=== PATIENT | male | born 1985 | race Caucasian/White ===

== ENCOUNTER 2025-01-20 15:58 | Inpatient (IN) | payer OTHER ==
[~2025-01-20] VITALS: Ht 177.8 cm; Wt 89.5 kg
[2025-01-20] MEDS ORDERED: ZOLPIDEM TARTRATE 5 MG TABLET PO PRN (17:30)
[2025-01-20] MEDS ORDERED: MAGNESIUM HYDROXIDE SUSPENSION 30 ML UDCUP PO PRN (17:30)
[2025-01-20] MEDS: DOCUSATE SODIUM 100 MG CAPSULE PO SCH (20:48)
[2025-01-21 02:01] VITALS: BP 140/99; PULSE 60; RESP 20; TEMP 98.4; O2SAT 96
[2025-01-21] MEDS: FAMOTIDINE 20 MG TABLET PO SCH (08:51)
[2025-01-21 16:52] VITALS: BP 155/98; PULSE 58; RESP 20; TEMP 97.8; O2SAT 95
[2025-01-21 19:56] VITALS: BP 132/104; PULSE 73; RESP 18; TEMP 97.7; O2SAT 73; O2SAT 93
[2025-01-21 23:07] LABS: APPEARANCE,URINE CLEAR (CLEAR); GLUCOSE, URINE (UA) TRACE mg/dL (NEGATIVE); LEUKOCYTE ESTERASE ,URINE NEGATIVE (NEGATIVE); NITRATE,URINE NEGATIVE (NEGATIVE); OCCULT BLOOD,URINE NEGATIVE (NEGATIVE); SPECIFIC GRAVITIY, URINE 1.033 (1.003-1.030)
[2025-01-21 23:08] LABS: PH,URINE DRUG SCREEN 6.5 (5.0-8.0)
[2025-01-21 23:13] LABS: ALCOHOL, URINE DRUG SCREEN NEGATIVE (NEGATIVE); AMPHET/METH SCREEN,URINE NEGATIVE (NEGATIVE); BARBITURATE SCREEN, URINE NEGATIVE (NEGATIVE); CANNABINOID SCREEN,URINE NEGATIVE (NEGATIVE); COCAINE SCREEN,URINE NEGATIVE (NEGATIVE); METHADONE SCREEN, URINE NEGATIVE (NEGATIVE)
[2025-01-22 05:34] VITALS: BP 155/109; PULSE 73; RESP 19; TEMP 97.4; O2SAT 98
[2025-01-22 09:05] VITALS: BP 137/100; PULSE 57; RESP 20; TEMP 98.1; O2SAT 98
[2025-01-22] MEDS: DEXTROSE 5%-0.45% SODIUM CHL 1,000 ML IV SCH (12:45)
[2025-01-22] MEDS: HEPARIN SODIUM,PORCINE 5,000 UNITS/ML VIAL SQ SCH (16:00)
[2025-01-22 19:40] VITALS: BP 133/92; PULSE 57; RESP 18; TEMP 98.1; O2SAT 98
[2025-01-23 05:20] VITALS: BP 129/85; PULSE 59; RESP 18; TEMP 97.9; O2SAT 100
[2025-01-23 08:08] VITALS: BP 118/84; PULSE 62; RESP 18; TEMP 97.9; O2SAT 100
[2025-01-23 15:35] VITALS: BP 131/92; PULSE 65; RESP 18; TEMP 97.8; O2SAT 100
[2025-01-23 19:12] VITALS: BP 122/96; PULSE 70; RESP 18; TEMP 98.1; O2SAT 97
[2025-01-24 04:50] VITALS: BP 133/79; PULSE 71; RESP 19; TEMP 97.9; O2SAT 100
[2025-01-24 07:30] VITALS: BP 126/90; PULSE 82; RESP 19; TEMP 97.9; O2SAT 100
[2025-01-24 21:01] VITALS: BP 125/82; PULSE 91; RESP 18; TEMP 97.5; O2SAT 95
[2025-01-25 06:03] VITALS: BP 122/86; PULSE 70; RESP 18; TEMP 97.7; O2SAT 95
[2025-01-25 07:40] VITALS: BP 113/75; PULSE 64; RESP 18; TEMP 97.3; O2SAT 96
[2025-01-25 19:47] VITALS: BP 120/88; PULSE 60; RESP 18; TEMP 97.9; O2SAT 100
[2025-01-26 04:19] VITALS: BP 121/93; PULSE 80; RESP 18; TEMP 97.5; O2SAT 98
[2025-01-26 08:27] VITALS: BP 121/89; PULSE 61; RESP 19; TEMP 97.7; O2SAT 98
[2025-01-26 19:39] VITALS: BP 117/89; PULSE 60; RESP 18; TEMP 97.7; O2SAT 97
[2025-01-27 04:24] VITALS: BP 118/89; PULSE 63; RESP 19; TEMP 97.9; O2SAT 98
[2025-01-27 08:27] VITALS: BP 124/92; PULSE 65; RESP 18; TEMP 97.7; O2SAT 97
[2025-01-27 19:54] VITALS: BP 121/90; PULSE 73; RESP 18; TEMP 97.5; O2SAT 98
[2025-01-28 00:50] LABS: GLUCOMETER DEV NAME(LOC) 6S.1D; GLUCOSE,POINT OF CARE 156 MG/DL (70-110)
[2025-01-28 00:50] LABS: GLUCOMETER DEV NAME(LOC) 6S.1D; GLUCOSE,POINT OF CARE 136 MG/DL (70-110)
[2025-01-28 04:21] VITALS: BP 113/81; PULSE 70; RESP 18; TEMP 97.5; O2SAT 98
[2025-01-28 07:40] VITALS: BP 131/93; PULSE 61; RESP 18; TEMP 98.5; O2SAT 99
[2025-01-28 15:48] LABS: PLATELET COUNT (AUTO) 204 K/uL (150-450); RED BLOOD CELL COUNT(AUTO) 5.69 MIL/uL (4.50-5.90); RED CELL DISTRIBUTION WIDTH 14.0 % (11.5-14.5); WHITE BLOOD COUNT (AUTO) 6.5 K/uL (4.5-11.0)
[2025-01-28 15:59] LABS: CALCIUM, TOTAL 9.4 mg/dL (8.8-10.5); CREATININE 1.04 mg/dL (0.60-1.30); GLOMERULAR FILTR. RATE CALC > 60 mL/min (>60); GLUCOSE,RANDOM 115 mg/dL (70-110); SODIUM SERUM 137 mmol/L (136-145); UREA NITROGEN, BLOOD 20 mg/dL (7-18)
[2025-01-28 16:04] LABS: ASPARTATE AMINOTRANSFERASE 18 U/L (15-37); TOTAL PROTEIN, SERUM 7.6 g/dL (6.4-8.2)
[2025-01-28 20:49] VITALS: BP 133/99; PULSE 77; RESP 18; TEMP 97.7; O2SAT 95
[2025-01-29 06:20] VITALS: BP 123/90; PULSE 56; RESP 18; TEMP 97.7; O2SAT 97
[2025-01-29 08:00] VITALS: BP 118/89; PULSE 61; RESP 18; TEMP 97.5; O2SAT 96
[2025-01-29] MEDS: *CLINICAL-PERIPHERAL PARENTERAL NUTRITION DOSING CLINICAL ONE (15:41)
[2025-01-29 19:56] VITALS: BP 118/87; PULSE 63; RESP 18; TEMP 97.3; O2SAT 99
[2025-01-29] MEDS: POTASSIUM CHLORIDE IV SCH (20:45)
[2025-01-29] MEDS: [UNRECOGNIZED DRUG - OTHER] IV SCH (20:45)
[2025-01-29] MEDS: PPN IV SCH (20:45)
[2025-01-29] MEDS: SODIUM CHLORIDE IV SCH (20:45)
[2025-01-30 04:33] VITALS: BP 125/88; PULSE 61; RESP 20; TEMP 98.1; O2SAT 98
[2025-01-30 07:33] VITALS: BP 111/83; PULSE 66; RESP 19; TEMP 98.1; O2SAT 99
[2025-01-30 10:30] LABS: TROPONIN I-HIGH SENSITIVITY 9 ng/L (<76)
[2025-01-30 10:57] LABS: CALCIUM, TOTAL 9.1 mg/dL (8.8-10.5); CREATININE 1.03 mg/dL (0.60-1.30); GLOMERULAR FILTR. RATE CALC > 60 mL/min (>60); GLUCOSE,RANDOM 95 mg/dL (70-110); PHOSPHORUS 4.5 mg/dL (2.5-4.9); SODIUM SERUM 136 mmol/L (136-145); UREA NITROGEN, BLOOD 11 mg/dL (7-18)
[2025-01-30] MEDS: POTASSIUM CHL 10 MEQ/WATER 50 ML IV SCH (12:00)
[2025-01-30 20:13] VITALS: BP 113/86; PULSE 62; RESP 19; TEMP 98; O2SAT 98
[2025-01-30] MEDS: SODIUM CHLORIDE IV SCH (22:00)
[2025-01-30] MEDS: [UNRECOGNIZED DRUG - OTHER] IV SCH (22:00)
[2025-01-30] MEDS: POTASSIUM CHLORIDE IV SCH (22:00)
[2025-01-30] MEDS: PPN IV SCH (22:00)
[2025-01-30] MEDS ORDERED: POTASSIUM CHL 10 MEQ/WATER 50 ML IV PRN (22:30)
[2025-01-31 04:28] VITALS: BP 115/88; PULSE 61; RESP 18; TEMP 98.4; O2SAT 96
[2025-01-31 08:20] VITALS: BP 116/91; PULSE 74; RESP 18; TEMP 98.2; O2SAT 96
[2025-01-31] MEDS: POTASSIUM CHLORIDE 20 MEQ ER TABLET PO ONE (17:00)
[2025-01-31 19:15] VITALS: BP 113/87; PULSE 66; RESP 18; TEMP 97.9; O2SAT 98
[2025-02-01 04:10] VITALS: BP 104/74; PULSE 64; RESP 18; TEMP 97.7; O2SAT 95
[2025-02-01 07:22] VITALS: BP 106/68; PULSE 68; RESP 18; TEMP 98.1; O2SAT 98
[2025-02-01 19:31] VITALS: BP 103/80; PULSE 66; RESP 18; TEMP 97.7; O2SAT 98
[2025-02-02] MEDS: ACETAMINOPHEN 325 MG TABLET PO PRN (04:06)
[2025-02-02 04:20] VITALS: BP 113/82; PULSE 73; RESP 19; TEMP 98.2; O2SAT 95
[2025-02-02] MEDS ORDERED: SODIUM CHLORIDE IV PRN (07:30)
[2025-02-02] MEDS ORDERED: [UNRECOGNIZED DRUG - OTHER] IV PRN (07:30)
[2025-02-02] MEDS ORDERED: PPN IV PRN (07:30)
[2025-02-02] MEDS ORDERED: POTASSIUM CHLORIDE IV PRN (07:30)
[2025-02-02 07:40] VITALS: BP 114/88; PULSE 56; RESP 18; TEMP 97.9; O2SAT 99
[2025-02-02 19:35] VITALS: BP 112/80; PULSE 68; RESP 20; TEMP 98.1; O2SAT 97
[2025-02-03 04:22] VITALS: BP 116/88; PULSE 55; RESP 18; TEMP 97.9; O2SAT 97
[2025-02-03 07:49] VITALS: BP 116/82; PULSE 56; RESP 18; TEMP 97.9; O2SAT 97
[2025-02-03 19:40] VITALS: BP 112/85; PULSE 61; RESP 18; TEMP 97.5; O2SAT 98
[2025-02-04 05:05] VITALS: BP 114/76; PULSE 63; RESP 18; TEMP 98.2; O2SAT 97
[2025-02-04 08:20] VITALS: BP 94/77; PULSE 66; RESP 18; TEMP 97.5; O2SAT 100
[2025-02-04] MEDS ORDERED: FAMOTIDINE 20 MG TABLET ONE (11:58)
[2025-02-04 19:54] VITALS: BP 125/94; PULSE 61; RESP 18; TEMP 98.2; O2SAT 98
[2025-02-05 05:13] VITALS: BP 116/85; PULSE 51; RESP 18; TEMP 97.9; O2SAT 99
[2025-02-05 08:29] VITALS: BP 113/79; PULSE 76; RESP 20; TEMP 97.9; O2SAT 96
[2025-02-05] MEDS: SERTRALINE HCL 50 MG TABLET PO SCH (16:10)
[2025-02-05 19:56] VITALS: BP 126/98; PULSE 70; RESP 20; TEMP 97.9; O2SAT 97
[2025-02-06 05:42] VITALS: BP 116/88; PULSE 54; RESP 20; TEMP 97.7; O2SAT 96
[2025-02-06 12:54] LABS: PLATELET COUNT (AUTO) 185 K/uL (150-450); RED BLOOD CELL COUNT(AUTO) 5.48 MIL/uL (4.50-5.90); RED CELL DISTRIBUTION WIDTH 13.7 % (11.5-14.5); WHITE BLOOD COUNT (AUTO) 6.3 K/uL (4.5-11.0)
[2025-02-06 13:02] LABS: CALCIUM, TOTAL 9.1 mg/dL (8.8-10.5); CREATININE 0.93 mg/dL (0.60-1.30); GLOMERULAR FILTR. RATE CALC > 60 mL/min (>60); GLUCOSE,RANDOM 93 mg/dL (70-110); SODIUM SERUM 137 mmol/L (136-145); UREA NITROGEN, BLOOD 8 mg/dL (7-18)
[2025-02-06 13:06] LABS: PHOSPHORUS 4.0 mg/dL (2.5-4.9)
[2025-02-06 13:11] LABS: TROPONIN I-HIGH SENSITIVITY 6 ng/L (<76)
[2025-02-06 19:15] VITALS: BP 135/98; PULSE 86; RESP 19; TEMP 98.4; O2SAT 100
[2025-02-07 04:37] VITALS: BP 121/88; PULSE 62; RESP 18; TEMP 97.5; O2SAT 98
[2025-02-07 07:50] VITALS: BP 116/83; PULSE 55; RESP 19; TEMP 97.7; O2SAT 99
[2025-02-07 19:34] VITALS: BP 120/87; PULSE 62; RESP 17; TEMP 98.1; O2SAT 98
[2025-02-08 04:30] VITALS: BP 114/62; PULSE 52; RESP 17; TEMP 97.8; O2SAT 97
[2025-02-08 07:56] VITALS: BP 126/89; PULSE 51; RESP 18; TEMP 97.5; O2SAT 98
[2025-02-08 19:41] VITALS: BP 125/75; PULSE 57; RESP 18; TEMP 97.3; O2SAT 97
[2025-02-09 05:07] VITALS: BP 119/86; PULSE 56; RESP 18; TEMP 97.5; O2SAT 97
[2025-02-09 08:00] VITALS: BP 120/84; PULSE 49; RESP 19; TEMP 97.5; O2SAT 98
[2025-02-09 20:03] VITALS: BP 111/68; PULSE 53; RESP 18; TEMP 97.5; O2SAT 96
[2025-02-10 04:00] VITALS: BP 118/85; PULSE 60; RESP 18; TEMP 98.1; O2SAT 96
[2025-02-10 08:24] VITALS: BP 133/89; PULSE 51; RESP 18; TEMP 97.1; O2SAT 97
[2025-02-10 19:26] VITALS: BP 112/77; PULSE 66; RESP 18; TEMP 98.2; O2SAT 97
[2025-02-11 03:45] VITALS: BP 122/82; PULSE 64; RESP 18; TEMP 97.5; O2SAT 97
[2025-02-11 08:31] VITALS: BP 109/78; PULSE 60; RESP 18; TEMP 97.5; O2SAT 97
[2025-02-11 20:58] VITALS: BP 112/85; PULSE 57; RESP 19; TEMP 98.1; O2SAT 98
[2025-02-12 03:45] VITALS: BP 118/82; PULSE 52; RESP 17; TEMP 98.4; O2SAT 98
[2025-02-12 08:37] VITALS: BP 123/93; PULSE 59; RESP 18; TEMP 97.9; O2SAT 98
[2025-02-12] MEDS: MORPHINE SULFATE 2 MG/ML SYRINGE IVP ONE (16:30)
[2025-02-12 17:00] LABS: TROPONIN I-HIGH SENSITIVITY 4 ng/L (<76)
[2025-02-12 19:43] VITALS: BP 115/83; PULSE 64; RESP 20; TEMP 98.2; O2SAT 96
[2025-02-13] MEDS: POTASSIUM CHLORIDE 20 MEQ ER TABLET PO PRN (00:21)
[2025-02-13 08:24] VITALS: BP 112/71; PULSE 56; RESP 18; TEMP 98.1; O2SAT 99
[2025-02-13 19:38] VITALS: BP 108/82; PULSE 53; RESP 17; TEMP 98.1; O2SAT 97
[2025-02-14 00:07] VITALS: BP 115/72; PULSE 59; RESP 18; TEMP 98.1; O2SAT 98
[2025-02-14 04:11] VITALS: BP 111/63; PULSE 61; RESP 18; TEMP 98.1; O2SAT 96
[2025-02-14 08:04] VITALS: BP 114/68; PULSE 66; RESP 18; TEMP 98; O2SAT 96
[2025-02-14 19:51] VITALS: BP 121/86; PULSE 57; RESP 18; TEMP 97.7; O2SAT 97
[2025-02-15 04:31] VITALS: BP 110/81; PULSE 71; RESP 18; TEMP 97.7; O2SAT 97
[2025-02-15 07:52] VITALS: BP 113/75; PULSE 51; RESP 18; TEMP 97.9; O2SAT 97
[2025-02-15] MEDS ORDERED: FAMO20 PO (13:32)
[2025-02-15] MEDS ORDERED: SERT-158 PO (13:33)
[2025-02-15 19:57] VITALS: BP 121/82; PULSE 54; RESP 18; TEMP 98.1; O2SAT 97
[2025-02-16 04:11] VITALS: BP 122/82; PULSE 50; RESP 18; TEMP 97.3; O2SAT 97
[2025-02-16 08:00] VITALS: BP 117/84; PULSE 52; RESP 19; TEMP 97.3; O2SAT 100
== END 2025-02-16 18:22 | DRG 923 ==
LOC: EMS 15:58 → EDH 17:25 → 6N 01-21 00:45
PROVIDERS: ADMIT Internal Medicine; ATTEND Internal Medicine
DX: T73.0XXA Starvation, initial encounter (principal); F33.2 Major depressive disorder, recurrent severe without psychotic features; R45.851 Suicidal ideations; X58.XXXA Exposure to other specified factors, initial encounter; R07.89 Other chest pain; E87.6 Hypokalemia; G47.00 Insomnia, unspecified; F41.9 Anxiety disorder, unspecified; Z79.899 Other long term (current) drug therapy
CPT/HCPCS: 80048; 80053; 80307; 81003; 82962; 83735; 84100; 84484; 85025; 87081; 93005; 99285; G0378; J0610; J1644; J2270; J3475; J3480; J3490; J7070; J7131